=== PATIENT | male | born 1985 | race Caucasian/White ===

== ENCOUNTER 2020-04-06 17:29 | Emergency (ER) | payer SELFPAY ==
[2020-04-06 17:38] VITALS: BP 148/90; PULSE 94; RESP 16; TEMP 36.8; O2SAT 97
--- NOTE | 2020-04-06 17:48 | ED.GENADUL_ITS ---
Discharge Plan Disposition Patient Disposition: HOME Condition: Stable Discharge Details Chief Complaint: EarProblem Clinical Impression: Bilateral hearing loss due to cerumen impaction Primary Care Provider: None,None ED Provider: Jena Carlos Home Meds and New Rx's Prescriptions: No Action albuterol sulfate [Proventil HFA] 1 PUFF HFA aerosol inhaler 2 puff Inhalation DIRECTED RF: 0 diphenhydramine HCl [Benadryl Allergy] 25 MG tablet 25 mg PO Q4H PRNRF: 0 Discharge Instructions Instructions: Cerumen Impaction (ED) Additional Instructions: Use warm tap water and hydrogen peroxide as directed to attempt to irrigate ears out at home. You can get [id number] earwax softening drops as needed. Return to the ER for any concerns or worsening, fever. Discharge Data Discharge Date/Time-TO BE ENTERED AT DEPARTURE: 04/06/20 19:25 Medical Decision Making 1751: Bilateral ear canals are impacted with cerumen, irrigation ordered. 1911: Multiple attempts to irrigate cerumen impaction unsuccessful this time. We will send patient home with instructions to place earwax softening and instructions on self irrigation with bulb syringe. Additional earwax softening drops applied prior to discharge. Instructed on home care and instructions to follow-up, verbalized understanding. HPI General Mode of arrival: ambulatory . Date/Time Provider Initiated Documentation: 04/06/20 17:40 . Limitations to Documentation: no limitations . Information obtained by: patient . HPI Narrative: 35-year-old male presents with bilateral ear fullness worse on left than right for the last 2 to 3 days. Patient states decreased hearing for the last 2 to 3 days. Denies fever, chills, runny nose or sore throat. This is mild in severity. No other complaints at this time. Related Data Home Medications Medication Instructions Recorded Confirmed albuterol sulfate [Proventil Hfa] 2 puff INHALATION DIRECTED 04/16/13 04/06/20 diphenhydramine HCl [Benadryl 25 mg PO Q4H PRN 04/16/13 04/06/20 Allergy] Allergies Allergy/AdvReac Type Severity Reaction Status Date / Time No Known Allergies Allergy Verified 04/06/20 17:41 General Stated Complaint: EarProblem MICHAEL: 4 Review of Systems ENT Ears, Nose, Mouth, and Throat: Reports abnormal hearing Neurologic Neurologic: Reports abnormal hearing [facility] Social History Smoking/Tobacco Use Status: Current every day Drug use: Occasionally Substance use type: marijuana Exam HENMT Head: normal to inspection Ears: external ears normal and unable to visualize TM bilaterally (Cerumen impacted) General nose exam: external nose normal Face and sinus: normal facial exam Mouth: oral mucosae normal and moist mucous membranes Teeth and gingiva: dentition normal Throat: posterior oropharynx normal Course Vital Signs Vital signs: Vital Signs Temperature 36.8 C 04/06/20 17:38 Pulse 94 H 04/06/20 17:38 Respiratory Rate 16 04/06/20 17:38 Blood Pressure 148/90 H 04/06/20 17:38 Pulse Oximetry 97 04/06/20 17:38 Temperature 36.8 C 04/06/20 17:38 Temperature Source Skin 04/06/20 17:38 Pulse 94 H 04/06/20 17:38 Respiratory Rate 16 04/06/20 17:38 Respiratory Effort Non-Labored 04/06/20 17:38 Blood Pressure 148/90 H 04/06/20 17:38 Blood Pressure Position Sitting 04/06/20 17:38 Pulse Oximetry 97 04/06/20 17:38 Oxygen Delivery Method Room Air 04/06/20 17:38 Oxygen Flow Rate 0 04/06/20 17:38 Pain Level 1 04/06/20 17:42
--- NOTE | 2020-04-06 18:14 | NUR.NOTE ---
Nursing Note:Murine applied to both ears.
[2020-04-06 18:53] VITALS: BP 135/83; PULSE 88; RESP 18; TEMP 37.1; O2SAT 96
== END 2020-04-06 19:25 | disposition home or self-care (01) ==
PROVIDERS: Emergency Provider Registered Nurse Emergency
DX: H61.23 Impacted cerumen, bilateral (principal); H91.8X3 Other specified hearing loss, bilateral
CPT/HCPCS: 69209; 99282

== ENCOUNTER 2020-09-12 13:39 | Emergency (ER) | payer SELFPAY ==
[2020-09-12 13:47] VITALS: BP 128/76; PULSE 91; RESP 22; TEMP 36.6; O2SAT 94
[2020-09-12] MEDS: predniSONE 20 MG TAB 60 MG PO (14:04)
[2020-09-12 14:29] VITALS: RESP 28
--- NOTE | 2020-09-12 14:30 | NUR.NOTE ---
pt waiting for his neb untill we can get into a negative pressure room Nursing Note:
--- NOTE | 2020-09-12 14:38 | NUR.NOTE ---
Nursing Note: updraft delayed r/t no negative pressure room available. Dr. Bae aware and consents to this.
[2020-09-12 14:44] VITALS: RESP 8
[2020-09-12] MEDS: Albuterol/Ipratropium 3 ML UPD VIAL UPD (14:44)
[2020-09-12 14:46] VITALS: O2SAT 91
[2020-09-12 14:59] VITALS: BP 123/87; PULSE 89; RESP 18; TEMP 37; O2SAT 93
--- NOTE | 2020-09-12 15:14 | ED.GENADUL_ITS ---
Discharge Plan Disposition Patient Disposition: HOME Condition: Improving Discharge Details Clinical Impression: Acute bronchitis Primary Care Provider: None,None ED Provider: Mee Bae Home Meds and New Rx's Prescriptions: New prednisone 20 mg tablet See Rx Instructions .ROUTE .COMPLEX Qty: 12 RF: 0 doxycycline hyclate 100 mg tablet 100 mg PO BID 7 Days Qty: 14 RF: 0 Discharge Instructions Instructions: Acute Bronchitis (ED) Additional Instructions: Drink plenty of fluids and get plenty of rest. Use the albuterol inhaler as needed and directed for shortness of breath or wheezing. Take the steroids until finished. If your symptoms do not improve or worsen over the next 2 days, you can start the antibiotics. You will receive a call from care management regarding a follow-up appointment with the primary care doctor for reevaluation and to establish care Return immediately to the emergency department if you develop any worsening or new concerning symptoms. Discharge Data Discharge Date/Time-TO BE ENTERED AT DEPARTURE: 09/12/20 15:53 Discharge Physician: Mee Bae Medical Decision Making 35yo M with a history of tobacco smoking presents with dry cough and shortness of breath and wheezing for the past 2 months, worse over the past 2 months. Vitals within normal limits. Patient is noted to have mild labored breathing with oxygen saturation 94% on room air. He has diffuse wheezing throughout. No accessory muscle use and he is able to speak in full sentences. Suspect most likely acute bronchitis. Chart notes a history of asthma but he denies this and admits to only seasonal allergies. He has been living with his brother's cat which she says is a source of an allergy. Do not see an indication for chest x-ray as he has no reported fever or productive cough. Patient given a DuoNeb and p.o. steroids and reassessed and has significant improvement of symptoms. Wheezing significantly improved. O2 sat 92 to 93% on room air. Patient offered another neb treatment but declined and felt good to go home. We will send patient home with albuterol inhaler, p.o. steroids. Because he is a smoker, will also send with a prescription for antibiotic if symptoms not improve or worsen. Patient placed on care management list to arrange for follow-up appointment with the primary care doctor to establish care and to reassess. Usual and customary return precautions given prior to discharge. HPI General Mode of arrival: ambulatory . Date/Time Provider Initiated Documentation: 09/12/20 13:42 . Limitations to Documentation: no limitations . Information obtained by: patient . HPI Narrative: Patient is a 35-year-old male with a history of seasonal allergies who presents with shortness of breath for the past 2 months worse over the past several days. Patient admits to dry cough and some wheezing but denies any known fever, chest pain, recent known sick contacts, recent travel, recent known exposure to coronavirus. He states he moved here 3 months ago to live with his brother who has a cat which she is allergic to. He states he has tried avoiding where the cat is but feels that this makes his shortness of breath worse. Patient states he has been using his brother's inhaler with some relief. Related Data Home Medications Medication Instructions Recorded Confirmed doxycycline hyclate 100 mg PO BID 7 Days #14 tab 09/12/20 prednisone See Rx Instructions .ROUTE 09/12/20 .COMPLEX #12 tab Previous Rx's Medication Instructions Recorded doxycycline hyclate 100 mg PO BID 7 Days #14 tab 09/12/20 prednisone See Rx Instructions .ROUTE 09/12/20 .COMPLEX #12 tab Allergies Allergy/AdvReac Type Severity Reaction Status Date / Time No Known Allergies Allergy Verified 09/12/20 13:56 General Stated Complaint: SOB MICHAEL: 3 Review of Systems All systems reviewed & are unremarkable except as noted in HPI and below Constitutional Constitutional: Reports as per HPI, Denies chills and Denies fever(s) Eyes Eyes: Denies blurry vision ENT Ears, Nose, Mouth, and Throat: Denies dizziness, Denies sore throat and Denies throat swelling Cardiovascular Cardiovascular: Denies chest pain and Reports dyspnea Respiratory Respiratory: Reports cough and Reports dyspnea Gastrointestinal Gastrointestinal: Denies abdominal pain, Denies diarrhea and Denies vomiting Genitourinary Genitourinary: Denies hematuria and Denies dysuria Musculoskeletal Musculoskeletal: Denies back pain and Denies numbness Integumentary/Breasts Skin/Breast: Denies lesions and Denies rash Neurologic Neurologic: Denies dizziness, Denies localized weakness and Denies numbness Allergic/Immunologic Allergic/Immunologic: Denies throat swelling [facility] Medical History (Updated 09/12/20 @ 15:56 by Mee Bae DO) Seasonal allergies Surgical History (Updated 09/12/20 @ 15:54 by Mee Bae DO) No significant past surgical history Social History Smoking/Tobacco Use Status: Current every day Tobacco Type: cigarettes Smoking risk assessment performed?: Yes Alcohol Intake: current Alcohol Intake frequency: holidays/special occasions only Drug use: Occasionally Substance use type: marijuana Exam Const General: cooperative, healthy appearing and no acute distress HENMT Head: normal to inspection Ears: hearing grossly normal bilaterally, external ears normal and TM's normal bilaterally General nose exam: external nose normal Face and sinus: normal facial exam Mouth: oral mucosae normal Throat: posterior oropharynx normal Eyes General: appearance normal, both eyes and all related structures EOM: EOM intact bilaterally Neck Neck: normal visual inspection and No submandibular swelling Lymphatic: no lymphadenopathy noted Chest Chest: normal inspection of the chest and no tenderness Resp Effort & Inspection: normal respiratory effort, able to speak in complete sentences, no audible wheezes, labored (mild), no nasal flaring, no respiratory distress and no use of accessory muscles Auscultation: wheezes lower bilaterally and upper bilaterally Cardio Rate: regular rate Rhythm: regular rhythm GI Inspection: normal to inspection Palpation: soft, not firm, not rigid and nontender Auscultation: normal bowel sounds Skin General skin exam: no rashes or lesions noted Neuro General: patient alert, patient awake and patient oriented x3 Cognition: normal cognition Speech: speech normal Motor: muscle tone normal throughout Sensory Exam: no sensory deficits noted Extrem General: normal to inspection, full ROM, capillary refill normal, no calf tenderness bilaterally and no edema Psych Appearance: grossly normal Mental Status: mental status grossly normal Speech and Movement: speech and movement normal Affect: normal affect Course Vital Signs Vital signs: Vital Signs Temperature 97.9 F 09/12/20 13:47 Pulse 91 H 09/12/20 13:47 Respiratory Rate 22 09/12/20 13:47 Blood Pressure 128/76 09/12/20 13:47 Pulse Oximetry 94 09/12/20 13:47 Temperature 98.6 F 09/12/20 14:59 Temperature Source Tympanic 09/12/20 14:59 Pulse 89 09/12/20 14:59 Respiratory Rate 18 09/12/20 14:59 Respiratory Effort 09/12/20 14:29 Respiratory Depth Shallow 09/12/20 14:29 Respiratory Pattern Normal 09/12/20 14:29 Blood Pressure 123/87 09/12/20 14:59 Pulse Oximetry 93 09/12/20 14:59 Oxygen Delivery Method Room Air 09/12/20 14:46 Oxygen Flow Rate 0 09/12/20 14:46 Pain Level 0 09/12/20 13:47
[2020-09-12] MEDS: Albuterol HFA 8 GM 60 PUFF INH IH (15:47)
[2020-09-12 15:52] VITALS: BP 123/87; PULSE 89; RESP 18; TEMP 37; O2SAT 93
--- NOTE | 2020-09-12 15:52 | NUR.NOTE ---
Nursing Note: Referral given to Care Management for follow up and establish care. Gina Cardenas phone number [phone]
--- NOTE | 2020-09-13 06:35 | NUR.NOTE ---
Sent referral to CM for pcp establishment. heavy smoker. [facility] Nursing Note:
--- NOTE | 2020-09-13 13:51 | CMPROGNOTE_ITS ---
- If Service Date Differs Date of service: 09/13/20 Time of Service: 13:52 Care Management Progress Note Jm is seen in the ED on 09/12/20 for acute bronchitis. At the request of Dr. Bae, ED provider, JENNIFER coordinates a referral to [facility] to assist Jm in obtaining a follow up appointment and in establishing care with a PCP. Jm is also referred to Amy Santillan, [employer] at [facility] for assistance with health insurance, as Jm appears to currently be uninsured.
== END 2020-09-12 15:53 | disposition home or self-care (01) ==
PROVIDERS: Emergency Provider Physician Assistant
DX: J20.8 Acute bronchitis due to other specified organisms (principal); F17.210 Nicotine dependence, cigarettes, uncomplicated
CPT/HCPCS: 94640; 99283; J7512; J7620